=== PATIENT | male | born 1945 | race Caucasian/White ===

== ENCOUNTER → 2020-12-13 | Outpatient (CLI) | payer MEDICARE | LOC: HEART CORB 08:54 | DX: I10 Essential (primary) hypertension (principal); R07.2 Precordial pain; R06.02 Shortness of breath; R00.1 Bradycardia, unspecified; I08.1 Rheumatic disorders of both mitral and tricuspid valves | CPT/HCPCS: 78452; 93306; A9502; J2785 ==